=== PATIENT | female | born 1965 | race Hispanic/Latino ===

== ENCOUNTER 2023-08-07 10:13 | Emergency (ER) | payer SELFPAY | END 2023-08-07 11:21 | disposition home or self-care (01) | LOC: BURERS 10:13 | DX: H66.92 Otitis media, unspecified, left ear (principal); H73.92 Unspecified disorder of tympanic membrane, left ear; J01.90 Acute sinusitis, unspecified; B96.89 Other specified bacterial agents as the cause of diseases classified elsewhere; J45.909 Unspecified asthma, uncomplicated | CPT/HCPCS: 99283 ==